=== PATIENT | female | born 1970 | race Caucasian/White ===

== ENCOUNTER 2016-12-06 09:52 | Emergency (ER) | payer BC ==
[2016-12-06] MEDS ORDERED: BUPIVACAINE (PF) 0.5% 30 ML VIAL SQ STA (10:37)
[2016-12-06] MEDS ORDERED: DIPH,PERTUS(ACELL)TETVAC-LF 0.5 ML VIAL IM ONE (10:47)
--- NOTE | 2016-12-06 11:31 | XR ---
EXAMINATION TYPE: XR hand complete LT DATE OF EXAM ORDERED: 12/06/2016 HISTORY: Pain. COMPARISON: None. FINDINGS: There is a moderately displaced, compound, comminuted tuft fracture of the distal phalanx of the left ring finger. No other fracture is seen. IMPRESSION: COMPOUND, COMMINUTED FRACTURE OF THE DISTAL PHALANX OF THE LEFT RING FINGER. CODE B: INITIAL ENCOUNTER FOR OPEN FRACTURE TYPE I OR II
[2016-12-06] MEDS ORDERED: ceFAZolin 1,000 MG VIAL IM STA (12:00)
[2016-12-06 12:27] VITALS: RESP 18
--- NOTE | 2016-12-06 13:53 | ED ---
Wound/Laceration HPI - General Chief Complaint: Wound/Laceration Stated Complaint: crushing injury wring finger left hand Time Seen by Provider: 12/06/16 10:28 Source: patient Mode of arrival: ambulatory Limitations: no limitations - History of Present Illness Initial Comments: This 46-year-old white female presents with a complaint of left ring finger crush injury. She apparently was splitting wood when her finger got caught between a piece of wood and the wood splitter. This occurred just prior to arrival. She is complaining of moderate to significant pain. She obtained a laceration to the distal aspect of the left ring finger. She denies any other injuries. Her tetanus tetanus was over 5 years ago. No other complaints or modifying factors. - Related Data Home Medications Medication Instructions Recorded Confirmed Ibuprofen [Ibuprofen] 800 mg PO Q8H PRN 12/06/16 12/06/16 Levothyroxine Sodium [Synthroid] 88 mcg PO DAILY 12/06/16 12/06/16 Sertraline [Zoloft] 100 mg PO DAILY 12/06/16 12/06/16 Previous Rx's Medication Instructions Recorded Cephalexin [Keflex] 500 mg PO Q6HR #28 cap 12/06/16 Hydrocodone/Acetaminophen [Roscoe 1 - 2 each PO Q4HR PRN #20 tab 12/06/16 5-325] Allergies Allergy/AdvReac Type Severity Reaction Status Date / Time No Known Allergies Allergy Verified 12/06/16 10:04 Review of Systems ROS Statement: Those systems with pertinent positive or pertinent negative responses have been documented in the HPI. ROS Other: All systems not noted in ROS Statement are negative. Past Medical History Past Medical History: No Reported History History of Any Multi-Drug Resistant Organisms: None Reported Additional Past Surgical History / Comment(s): neck Past Psychological History: No Psychological Hx Reported Smoking Status: Current every day smoker Past Alcohol Use History: None Reported Past Drug Use History: None Reported General Exam Limitations: no limitations Extremities exam: Present: tenderness (There is tenderness noted to the distal aspect of the left ring finger.), normal capillary refill (There is good capillary refill present to the distal segment of the left ring finger.) Neurological exam: Present: alert, oriented X3, other (Sensation is intact to the distal aspect of the left ring finger. Light touch and sharp.) Psychiatric exam: Present: normal affect, normal mood Skin exam: Present: other (There is a complex laceration noted to the distal aspect of the left ring finger. The laceration occurred just distal to the nail matrix and does involve the ulnar aspect of the left ring finger and slightly on the radial aspect. Total length of all lacerations is approximately 3 cm.) Course Vital Signs 12/06/16 12/06/16 10:00 12:26 Temperature 98.3 F Pulse Rate 80 77 Respiratory 17 18 Rate Blood Pressure 127/75 125/66 O2 Sat by Pulse 96 Oximetry Medical Decision Making - Medical Decision Making The patient was seen and examined. All diagnostics were reviewed. An x-ray was taken of the left hand and this does show comminuted fracture of the distal phalanx left ring finger. The patient receives a tetanus prophylaxis as well as Ancef 1 g IM. A digital block was completed by myself utilizing lidocaine with bupivacaine the usual standard fashion. Excellent anesthesia was obtained. The case was discussed with [place], the orthopedic physician bilingual sales assistant. He discusses the case with their orthopedic physician and he does call back and relates that he would like us to close the wound and have the patient follow up with Dr. Quinton Hoskins in 2 days. The wound was cleansed and thoroughly irrigated. It was explored and does appear to have some bony fragments but there is no foreign bodies or other deep structures involved. The nail was approximated back into the matrix. 2 sutures were placed deep that would essentially close the nailbed and hold the nail into place proximally. An additional 9 sutures were placed in and around the nail to further attach the skin. No deep sutures were placed. The patient tolerated the procedure well. Excellent results are noted. No complications were encountered. The wound was thoroughly dressed with antibiotics, and Adaptic, and a bulky dressing with a finger splint in place. The patient relates that she may not be able to follow-up with orthopedics due to financial concerns. Is strongly recommended that she still follow-up them for recheck. She understands and leaves in no distress. Return parameters are discussed. Disposition Clinical Impression: Finger laceration, Open finger fracture, Crush injury Disposition: HOME SELF-CARE Condition: Good Instructions: Finger Fracture (ED), Finger Laceration (ED), Diphtheria/ Pertussis/Tetanus Vaccine (By injection) Prescriptions: Cephalexin [Keflex] 500 mg PO Q6HR #28 cap Hydrocodone/Acetaminophen [Roscoe 5-325] 1 - 2 each PO Q4HR PRN #20 tab PRN Reason: Pain Referrals: Jimmy Thornton MD [Primary Care Provider] - 1-2 days Quinton Sandoval DO [Doctor of Osteopathic Medicine] - 12/08/16 Time of Disposition: 13:50
[2016-12-06 14:08] VITALS: BP 123/66; PULSE 68; TEMP 98.6
== END 2016-12-06 14:06 | disposition home or self-care (01) ==
LOC: EC 09:52
DX: S62.635B Displaced fracture of distal phalanx of left ring finger, initial encounter for open fracture (principal); F17.200 Nicotine dependence, unspecified, uncomplicated; Z23 Encounter for immunization; Z79.899 Other long term (current) drug therapy; W23.0XXA Caught, crushed, jammed, or pinched between moving objects, initial encounter
CPT/HCPCS: 99283; 11760; 96372; 90471; 73130; 90715; J0690

== ENCOUNTER → 2016-12-31 | Outpatient (CLI) | payer BC ==
--- NOTE | 2017-01-05 08:59 | MM ---
Reason for exam: screening (asymptomatic). Last mammogram was performed 2 years and 5 months ago. History: Benign right mammotome panel of the right breast, November 11, 2008. Physical Findings: A clinical breast exam by your physician is recommended on an annual basis and results should be correlated with mammographic findings. MG Screening Mammo w CAD Bilateral CC and MLO view(s) were taken. Prior study comparison: July 30, 2014, bilateral MG screening mammo w CAD. November 11, 2011, bilateral digital screening mammo w/CAD. There are scattered fibroglandular densities. Previous mammotome biopsy in the right breast. No significant changes when compared with prior studies. ASSESSMENT: Negative, BI-RAD 1 RECOMMENDATION: Routine screening mammogram of both breasts in 1 year.
== END | disposition home or self-care (01) ==
LOC: RADMAMWWP 07:26
PROVIDERS: ATTEND Obstetrics & Gynecology
DX: Z12.31 Encounter for screening mammogram for malignant neoplasm of breast (principal)

== ENCOUNTER → 2019-04-09 | Outpatient (CLI) | payer BC ==
--- NOTE | 2019-04-09 11:28 | BD ---
EXAMINATION TYPE: Axial Bone Density DATE OF EXAM: 04/09/2019 COMPARISON: NONE CLINICAL HISTORY: 49 YR OLD FEMALE....ICD-10 CODE: Z13.820 OSTEOPOROSIS SCREENING Height: 61.2 Weight: 165 FRAX RISK QUESTIONS: Current Tobacco Use: YES RISK FACTORS HISTORY OF: Active: YES Postmenopausal woman: HYST EARLY 30'S, SAHARA HORMONAL ?, NOW? Hyperparathyroidism: NO Adrenal Insufficiency: NO MEDICATIONS: Thyroid Medications: YES, GENERIC SYNTHROID, FOR ABOUT 6 YRS Additional Medications: ZOLOFT, REFLUX MEDS, RADIATION FOR THYROID CA Additional History: REFLUX, THYROID CA EXAM MEASUREMENTS: Bone mineral densitometry was performed using the [employer] System. Bone mineral density as measured about the Lumbar spine is: ----- L1-L4(G/cm2): 1.436 T Score Values are as follows: ----- L1: 2.0 ----- L2: 1.6 ----- L3: 2.2 ----- L4: 2.7 ----- L1-L4: 2.1 Bone mineral density IS A BASELINE STUDY, FIRST SCAN Bone mineral density about the R hip (g/cm2): 1.136 Bone mineral density about the L hip (g/cm2): 1.098 T Score values are as follows: -----R Neck: 0.6 -----L Neck: 0.5 -----R Total: 1.0 -----L Total: 0.7 Bone mineral density IS THE FIRST SCAN, BASELINE STUDY FRAX%s: THERE IS A 3.4% CHANCE FOR A MAJOR OSTEOPOROTIC FX AND A 0.1% FOR HIP.....PROBABILITY FOR F X IN 10 YRS TIME IMPRESSION: Normal (Values between +1 and -1 indicate normal bone mass). Consider repeating this study in 5 year s or sooner if there is some new clinical indication. NOTE: T-SCORE=SD OF THE YOUNG ADULT MEAN.
--- NOTE | 2019-04-12 12:20 | MM ---
Reason for exam: screening (asymptomatic). Last mammogram was performed 2 years and 3 months ago. History: Benign right mammotome panel of the right breast, November 11, 2008. Physical Findings: A clinical breast exam by your physician is recommended on an annual basis and results should be correlated with mammographic findings. MG Screening Mammo w CAD Bilateral CC and MLO view(s) were taken. Prior study comparison: December 31, 2016, bilateral MG screening mammo w CAD. July 30, 2014, bilateral MG screening mammo w CAD. The breast tissue is heterogeneously dense. This may lower the sensitivity of mammography. Benign appearing bilateral calcifications. No suspicious abnormality on the left breast. Right biopsy marker noted. Right upper outer quadrant architectural distortion 8.5cm from nipple middle depth. ASSESSMENT: Incomplete: need additional imaging evaluation, BI-RAD 0 RECOMMENDATION: Special view mammogram and ultrasound of the right breast. [facility] will attempt to contact patient to return for supplemental views and ultrasound.
== END | disposition home or self-care (01) ==
LOC: RADMAMWWP 09:46
PROVIDERS: ATTEND Obstetrics & Gynecology
DX: Z12.31 Encounter for screening mammogram for malignant neoplasm of breast (principal); Z13.820 Encounter for screening for osteoporosis
CPT/HCPCS: 77067; 77080

== ENCOUNTER → 2019-04-25 | Outpatient (CLI) | payer BC ==
--- NOTE | 2019-04-25 13:25 | MM ---
Reason for exam: additional evaluation requested from abnormal screening. Last mammogram was performed 1 month ago. History: Benign right mammotome panel of the right breast, November 11, 2008. Physical Findings: Nurse did not find any significant physical abnormalities on exam. MG Work Up Mamm w CAD RT Spot compression CC, spot compression MLO, and LM view(s) were taken of the right breast. Prior study comparison: April 09, 2019, bilateral MG screening mammo w CAD. December 31, 2016, bilateral MG screening mammo w CAD. The breast tissue is heterogeneously dense. This may lower the sensitivity of mammography. Previous mammotome biopsy in the right breast. There is no discrete abnormality right upper outer quadrant, appears to be summation on compression. These results were verbally communicated with the patient and result sheet given to the patient on 04/25/19. ASSESSMENT: Suspicious, BI-RAD 4 RECOMMENDATION: Ultrasound core biopsy of the right breast. Called Dr. Hussein's office with mammographic findings and has scheduled an appointment for the patient for 06/06/19 at 4:[address] Munguia. Biopsy scheduled for 05/23/19 at 12:20. PRELIMINARY REPORT CALLED AND FAXED TO DR. MUNGUIA ON 04/25/19.
--- NOTE | 2019-04-25 13:31 | USB ---
Reason for exam: additional evaluation requested from abnormal screening. History: Benign right mammotome panel of the right breast, November 11, 2008. US Breast Workup Limited RT Right limited breast ultrasound including focal area of concern, retroareolar and axilla demonstrates a 0.8 x 0.7 x 0.3cm oval, complex, cystic lesion at 12 o'clock, duct ectasia at 12 o'clock, a 0.6 x 0.7 x 0.3cm oval, cystic lesion at 10 o'clock, a 0.6 x 0.6 x 0.5cm oval, mixed lesion at 11 o'clock, suspicious and a 0.2 x 0.3 x 0.3cm ductal, mixed lesion at posterior nipple. These results were verbally communicated with the patient and result sheet given to the patient on 04/25/19. ASSESSMENT: Suspicious, BI-RAD 4 RECOMMENDATION: Ultrasound core biopsy of the right breast. Called Dr. Hussein's office with mammographic findings and has scheduled an appointment for the patient for 06/06/19 at 4:[address] Munguia. Biopsy scheduled for 05/23/19 at 12:20. PRELIMINARY REPORT CALLED AND FAXED TO DR. MUNGUIA ON 04/25/19.
== END | disposition home or self-care (01) ==
LOC: RADMAMWWP 10:06
PROVIDERS: ATTEND Obstetrics & Gynecology
DX: R92.8 Other abnormal and inconclusive findings on diagnostic imaging of breast (principal)
CPT/HCPCS: 77065

== ENCOUNTER → 2019-05-23 | Day surgery (SDC) | payer BC ==
[2019-05-23 11:47] VITALS: RESP 12; TEMP 98.6
[2019-05-23 12:51] VITALS: BP 116/70; PULSE 68
--- NOTE | 2019-05-23 13:03 | USB ---
EXAMINATION TYPE: US biopsy breast VAD RT, MG diagnostic mammo RT wo CAD DATE OF EXAM: 05/23/2019 CLINICAL HISTORY: R92.8 ABN MAMMO. TECHNIQUE: Ultrasound guided core biopsy of right breast. COMPARISON: 04/25/2019 FINDINGS: The procedure of ultrasound guided core biopsy was explained to the patient. Benefits, alternatives, and risks were discussed. An informed consent was then obtained. Preprocedural timeout was performed. The patient was placed in supine positioning for imaging and for the procedure. The overlying skin was prepped and draped in usual sterile fashion. 10 cc of 1% lidocaine was used as anesthetic into the skin and subcutaneous tissue up to the 0.7 cm mass at the 11:00 position in the right breast. Under ultrasound guidance, a 12-gauge vacuum assisted biopsy gun device was used to obtain 8 core samples. Following this, a wing shaped biopsy marker was left at the site of biopsy. Postprocedure mammogram demonstrates appropriate biopsy marker placement concordant with the mammographic finding. The patient tolerated the procedure well without any immediate complication. The patient was kept in the radiology department for short stay after the procedure and then discharged home in stable condition. IMPRESSION: Successful, uncomplicated ultrasound guided core biopsy of the 0.7 cm mass at the 11:00 position in the right, full pathology results to follow. Pathology Results: Malignant RIGHT BREAST, ULTRASOUND GUIDED CORE BIOPSY: Minute foci suspicious for invasive ductal carcinoma, severely limited for further definitive characterization. See note. Recommendation Surgical consult of the right breast. HANNAH
== END ==
LOC: RADUSWWP 11:19
PROVIDERS: ATTEND Surgery
DX: C50.911 Malignant neoplasm of unspecified site of right female breast (principal)
CPT/HCPCS: 88305; 88342; 88341; 77065; 19083; A4648; J2001

== ENCOUNTER 2019-07-02 09:50 | Day surgery (SDC) | payer BC ==
[2019-06-25 09:42] VITALS: BMI 29.2
[~2019-07-02 09:50] MED LIST: ALPRAZolam 0.5 MG TAB PO PRN; DEXAMETHASONE SOD PHOSPHATE 10 MG/ML 1 ML VIAL IV ONE; HEPARIN SODIUM,PORCINE 5,000 UNIT/ML 1 ML VIAL SQ ONE; HYDROmorphone 0.5 MG/0.5 ML SYRINGE IVP PRN; LACTATED RINGERS 1,000 ML IV SCH; ONDANSETRON 4 MG/2 ML VIAL IVP ONE; Pre Op ABX Message 1 EACH MISC MISCELLANE ONE
[2019-07-02 10:13] VITALS: RESP 16
[2019-07-02] MEDS ORDERED: LIDOCAINE 1% INJ 10MG/ML (20 ML MDV) SQ ONE (11:27)
[2019-07-02] MEDS ORDERED: BUPIVACAINE (PF) 0.25% 30 ML VIAL SQ ONE ×3 (11:44→12:44)
--- NOTE | 2019-07-02 12:00 | P.HPADDEND ---
H&P Addendum H&P Addendum Date: 07/02/19 As per previous H&P patient with recent biopsy showing small focus of invasive ductal cancer. Her case was discussed at our multidisciplinary tumor board recently. Recommendations to proceed with surgery made at that time. We'll proceed with right breast lumpectomy with wire localization, right sentinel lymph node biopsy and injection. Risks previously reviewed. No other changes to the history and physical.
--- NOTE | 2019-07-02 12:00 | P.NAPBC ---
[facility] Queries - [facility] Queries Was patient's case review presented at [facility] tumor board? If no, comment.: Yes Was patient's pathology reviewed at [facility]? If no, comment.: Yes Was breast conservation surgery offered? If no, comment.: Yes Was sentinel node biopsy offered? If no, comment.: Yes Was diagnosis confirmed by percutaneous core biopsy? If no, comment.: Yes Is patient mastectomy patient?: No Was a preop referral to reconstructive surgeon offered?: Yes [facility] Comments: 1a Clinical Stage: 1a
[2019-07-02] MEDS ORDERED: SUCCINYLCHOLINE CHLORIDE 100 MG/5 ML SYR IV ONE (12:09)
[2019-07-02] MEDS ORDERED: ePHEDrine SULFATE/0.9% NACL/PF 50 MG/5 ML SYRINGE IV ONE (12:09)
[2019-07-02] MEDS ORDERED: PROPOFOL 10 MG/ML 20 ML VIAL IV ONE (12:09)
[2019-07-02] MEDS ORDERED: MIDAZOLAM 2 MG/2 ML VIAL ONE (12:09)
[2019-07-02] MEDS ORDERED: LIDOCAINE 1% INJ 10MG/ML (20 ML MDV) ONE (12:09)
[2019-07-02] MEDS ORDERED: fentaNYL (PF) 50 MCG/ML 2 ML AMP ONE (12:09)
[2019-07-02] MEDS ORDERED: SODIUM CHLORIDE 0.9% 100 ML with ceFAZolin 2,000 MG IV ONE ×2 (12:31)
[2019-07-02] MEDS ORDERED: METHYLENE BLUE 50 MG/10 ML AMPUL INJ ONE (12:35)
--- NOTE | 2019-07-02 12:42 | NM ---
EXAMINATION TYPE: NM sentinel node injection DATE OF EXAM: 07/02/2019 COMPARISON: Right breast biopsy dated 05/23/2019 HISTORY: Right breast cancer with request for sentinel node injection. TECHNIQUE AND FINDINGS: The procedure of sentinel lymph node injection was explained to the patient. The benefits, alternatives, and risks were discussed. An informed consent was then obtained. Prepr ocedural timeout was performed. Overlying skin is cleaned with sterile alcohol. Following this, 504 uCi Tc99m Tilmanocept was inject ed in the upper outer aspect of the right nipple intradermally. The patient tolerated the procedure well without any immediate complication. The patient was kept in the radiology department for short stay after the procedure and then taken to surgery for surgical p rocedure what is presumed intraoperative gamma probe will be used for sentinel lymph node detection. IMPRESSION: Right breast radiotracer injection for sentinel node localization as above.
--- NOTE | 2019-07-02 13:55 | MM ---
EXAMINATION TYPE: MG pre op needle loc RT, MG surgical specimen RT DATE OF EXAM: 07/02/2019 COMPARISON: Right breast biopsy dated 05/23/2019 CLINICAL HISTORY: Right breast cancer. Request from needle localization. TECHNIQUE: Needle localization with wire placement and surgical excision of area of concern in the right breast. FINDINGS: The procedure of needle localization with wire placement and than surgical excision was explained to the patient. Benefits, alternatives, and risks were discussed. An informed consent was then obtained. Preprocedural timeout was performed. The shortest pathway for procedure was chosen. Shortest pathway was CC from above approach. The overlying skin was prepped and draped in usual sterile fashion. Lidocaine buffered with bicarbonate was used as anesthetic into the skin and subcutaneous tissue up to the level of area of concern. A 5 cm needle was used. It was placed via a CC from above approach under mammographic guidance. Subsequent 90 degrees mammogram show the needle to be in satisfactory position relative to the targeted area. At this point, wire was placed and the needle was withdrawn. The wire was fixed to patient's skin. Images were marked for surgeon. The patient tolerated the procedure well without any immediate complication. The patient was kept in the radiology department for short stay after the procedure and then taken to surgery for surgical excision. Targeted biopsy marker and mammographic density and wire are identified in specimen mammogram. The patient was kept in hospital for short stay after the procedure and then discharged home in stable condition. IMPRESSION: Successful, uncomplicated needle localization with wire placement and surgical excision of a biopsy marker denoting the biopsy-proven right breast invasive ductal carcinoma, full pathology results to follow. Pathology Results: Malignant A. RIGHT BREAST, LUMPECTOMY: 11 x 5 x 4 mm well differentiated (Rosita Grade 1) infiltrating ductal adenocarcinoma in a background of fibrocystic disease with intraductal mineralizations. Tumor is greater than 3 mm away from the superior anterior, black/blue inked margin and 6 mm from the green/yellow margin of excision. See note. B. SENTINEL LYMPH NODE #1, BIOPSY: Negative for adenocarcinoma as seen on H+E as well as appropriately controlled immunohistochemical studies for QIAN and cytokeratin 7. Recommendation Surgical consult of the right breast. Continued surgical medical management. MTDD
[2019-07-02 13:59] VITALS: TEMP 97.3
[2019-07-02] MEDS ORDERED: traMADol 50 MG TAB PO PRN (14:28)
[2019-07-02] MEDS ORDERED: NALOXONE 0.4 MG/ML 1 ML VIAL IV PRN (14:28)
[2019-07-02 15:16] VITALS: PULSE 72
[2019-07-02 15:25] VITALS: BP 115/67
--- NOTE | 2019-07-02 15:50 | P.OP ---
Date of Procedure: 07/02/19 Procedure(s) Performed: REOPERATIVE DIAGNOSIS: Right breast cancer POSTOPERATIVE DIAGNOSIS: Same PROCEDURE: Right Breast wire localization lumpectomy with sentinel lymph node biopsy SURGEON: Nilda EBL: Minimal ANESTHESIA: General COMPLICATIONS: None OPERATIVE PROCEDURE: Patient was placed on the operating room table in the supine position. 2 mL of methylene blue was injected into the subareolar space. The breast was then massaged for 5 minutes. The breast was prepped and draped in usual sterile fashion. The right axilla was addressed at that time. The hot spot in the right axilla was identified. A small curvilinear incision was made using the scalpel. Dissection down through the subcutaneous tissues took place using electrocautery. Using the neoprobe I identified a total of 1 sentinel lymph node that was blue in color and radioactive. No additional blue lymphatics or radioactivity was identified in the axilla at that time. The lymph node itself appeared clinically benign. This was sent for permanent sectioning. No bleeding was seen. The subcutaneous tissues were closed using 3-0 Vicryl sutures. The skin was closed using 4-0 Monocryl sutures. The wire entrance site was then addressed. This was present at the 10:00 location. A curvilinear incision was made adjacent to the wire entrance site. I followed the wire down into the breast tissue. An adequate lumpectomy specimen then took place around the wire. Margins of 1.5-2 cm worth attempted to be achieved. The specimen was then painted the appropriate 6 colors. Clips were used to identify the lumpectomy cavity. The clip was confirmed to be within the lumpectomy specimen by radiology. The subcutaneous tissues were closed using 3-0 Vicryl sutures. The skin was closed using a running 4-0 Monocryl stitch. Skin glue and sterile dressings were then applied. DISPOSITION: Stable to recovery room
== END 2019-07-02 15:30 | disposition home or self-care (01) ==
LOC: OR 09:50
PROVIDERS: ATTEND Surgery
DX: C50.911 Malignant neoplasm of unspecified site of right female breast (principal); Z17.0 Estrogen receptor positive status [ER+]; F39 Unspecified mood [affective] disorder; E07.9 Disorder of thyroid, unspecified; K21.9 Gastro-esophageal reflux disease without esophagitis; F17.200 Nicotine dependence, unspecified, uncomplicated; Z79.890 Hormone replacement therapy; Z79.899 Other long term (current) drug therapy; Z79.1 Long term (current) use of non-steroidal anti-inflammatories (NSAID); Z90.710 Acquired absence of both cervix and uterus; Z98.890 Other specified postprocedural states
CPT/HCPCS: 19301; 38500; 88342; 88307; 88341; 76098; 38792; A9520; J2250; J1644; J1100; J2405; J0690; J2001; J3010; J0330; J2704; Q9968

== ENCOUNTER → 2020-06-10 | Outpatient (CLI) | payer BC ==
--- NOTE | 2020-06-10 10:12 | MM ---
Reason for exam: additional evaluation requested from prior study. Last mammogram was performed 1 year and 1 month ago. History: Patient has history of breast cancer at age 49. Radiation therapy, August 2019. Malignant MG pre op needle loc RT of the right breast, July 02, 2019. Lumpectomy of the right breast, July 02, 2019. Malignant US biopsy breast VAD RT of the right breast, May 23, 2019. Benign right mammotome panel of the right breast, November 11, 2008. Taking antineoplastic for 10 months. Physical Findings: Nurse did not find any significant physical abnormalities on exam. MG Diagnostic Mammo w CAD SHANKAR Bilateral CC and MLO view(s) were taken. Prior study comparison: May 23, 2019, right breast MG diagnostic mammo RT wo CAD. April 25, 2019, right breast MG work up mamm w CAD RT. The breast tissue is heterogeneously dense. This may lower the sensitivity of mammography. Finding: There are stable grouped/clustered calcifications in the outer quadrant, middle position 6cm from the nipple. Post surgical changes right upper outer quadrant. No significant changes in finding since May 23, 2019 and April 25, 2019. These results were verbally communicated with the patient and result sheet given to the patient on 06/10/20. ASSESSMENT: Benign, BI-RAD 2 RECOMMENDATION: Follow-up diagnostic mammogram of both breasts in 1 year.
== END | disposition home or self-care (01) ==
LOC: RADMAMWWP 08:54
PROVIDERS: ATTEND Internal Medicine Hematology & Oncology
DX: Z08 Encounter for follow-up examination after completed treatment for malignant neoplasm (principal); Z85.3 Personal history of malignant neoplasm of breast
CPT/HCPCS: 77066

== ENCOUNTER → 2021-12-25 | Outpatient (CLI) | payer OTHER ==
--- NOTE | 2021-12-25 11:29 | MM ---
Reason for Exam: Clinical finding. Last mammogram was performed 1 year(s) and 6 month(s) ago. Patient History: Menarche at age 9. First Full-Term at age 28. Late child-bearing (after 28). Hysterectomy at age 33. Breast cancer, right, age 49. 07/02/2019, Lumpectomy on the Right side. 07/02/2019, Malignant Core Biopsy on the right side. 05/23/2019, Malignant Core Biopsy on the right side. 11/11/2008, Benign Core Biopsy on the right side. 08/2019, Radiation Therapy. Prior Study Comparison: 04/25/2019 Right Diagnostic Mammogram, [facility]. 05/23/2019 Right Diagnostic Mammogram, [facility]. 06/10/2020 Bilateral Diagnostic Mammogram, [facility]. Tissue Density: The breast tissue is heterogeneously dense. This may lower the sensitivity of mammography. Findings: Analyzed By CAD. Stable lumpectomy changes right breast. Postoperative distortion. Scattered stable benign-appearing calcifications. Overall Assessment: Benign, BI-RAD 2 Management: Diagnostic Mammogram of both breasts in 1 year. A clinical breast exam by your physician is recommended on an annual basis and results should be correlated with mammographic findings. This exam should not preclude additional follow-up of suspicious palpable abnormalities. Results were given to the patient verbally at the time of exam. Electronically signed and approved by: Trino Lara M.D. Radiologis
== END | disposition home or self-care (01) ==
LOC: RADMAMWWP 10:53
PROVIDERS: ATTEND Internal Medicine Hematology & Oncology
DX: C50.411 Malignant neoplasm of upper-outer quadrant of right female breast (principal)
CPT/HCPCS: 77066

== ENCOUNTER → 2023-01-26 | Outpatient (CLI) | payer OTHER ==
--- NOTE | 2023-01-27 09:06 | CTL ---
EXAMINATION TYPE: CT Low Dose Lung DATE OF EXAM: 01/26/2023 5:00 PM CLINICAL INDICATION:Female, 52 years old with history of Z12.31; Personal hx of tobacco use. 1 pack/ day x 30 years. Current smoker. , history of tobacco use. COMPARISON: None. TECHNIQUE: Multiple axial non-contrast scans were obtained from approximately the lung apices through the upper abdomen. Coronal and sagittal reformatted images were obtained. Low dose technique was uti lized. CT DLP: 81.2 mGycm, Automated exposure control for dose reduction was used. CT Contrast: Contrast used: None Oral contrast used: None FINDINGS: ======== Lack of intravenous contrast and low dose technique limits the evaluation of the vascular and soft ti ssue structures. LUNGS: No evidence of pulmonary fibrosis. No evidence of focal consolidation, pneumothorax or pleural effusion. Nodules: RUL: None. RML: None. RLL: None. COSTA: None. LLL: * Calcified granuloma series 4 image 201, * 3 mm image 201 * opacity felt to represent atelectasis and/or scarring series 4 image 197. * 5 mm image 158 * Minor fissure intrafissural lymph node image 138 and 149. AIRWAY: Patent and unremarkable. HEART: Size within normal limits. MEDIASTINUM: No gross evidence of adenopathy. VASCULATURE: No aortic aneurysm. MUSCULOSKELETAL: Mild disc degeneration changes are present throughout the thoracolumbar spine. SOFT TISSUES/LYMPH NODES: Unremarkable. LOWER NECK: No significant findings. UPPER ABDOMEN: No significant findings. IMPRESSION: Left lower lobe pulmonary nodules which meet criteria for follow-up in one year. CT LUNG RAD AND CT CHEST RECOMMENDATION: Lung-Rad 2 Benign Appearance or Behavior: Continue annual sc reening with LDCT in 12 months. S Modifier (other clinically significant findings): None Recommend smoking cessation (if current smoker), or continuation of smoking cessation (if prior smoke r). Annual screening for lung cancer with low-dose computed tomography is recommended in adults ages 55 to 77 years who have a 30 pack-year smoking history and currently smoke or have quit within the pa st 15 years. Screening should be discontinued once a person has not smoked for 15 years or develops a health problem that substantially limits life expectancy or the ability or willingness to have curat atul lung surgery. Lung rads 2021 [email or web address]
--- NOTE | 2023-01-27 20:52 | MM ---
Reason for Exam: Screening (asymptomatic). Last mammogram was performed 1 year(s) and 1 month(s) ago. Patient History: Menarche at age 9. First Full-Term at age 28. Late child-bearing (after 28). Hysterectomy at age 33. Breast cancer, right, age 49. Previous chest radiation therapy at age 49. 07/02/2019, Lumpectomy on the Right side. 07/02/2019, Malignant Core Biopsy on the right side. 05/23/2019, Malignant Core Biopsy on the right side. 11/11/2008, Benign Core Biopsy on the right side. 08/2019, Radiation Therapy. Prior Study Comparison: 05/23/2019 Right Diagnostic Mammogram, [facility]. 06/10/2020 Bilateral Diagnostic Mammogram, [facility]. 12/25/2021 Bilateral MG diagnostic mammo w CAD [facility], [facility]. Tissue Density: There are scattered fibroglandular densities. Findings: Analyzed By CAD. Postsurgical and posttreatment changes right breast. Asymmetric density medial left breast remains unchanged. Asymmetric density lateral left breast at a middle depth is more defined but appears to disperse on the XCCL view. Superimposition shadow is suggested. Precautionary 6 month follow-up recommended. Otherwise, there is no suspicious group of microcalcifications or new suspicious mass in either breast. Overall Assessment: Probably benign, BI-RAD 3 Management: Diagnostic Mammogram of the left breast in 6 months. . Patient should continue monthly self-breast exams. A clinical breast exam by your physician is recommended on an annual basis. This exam should not preclude additional follow-up of suspicious palpable abnormalities. Note on Cathy scores and lifetime risk: 1. A Cathy score greater than 3% is considered moderate risk. If this is the case, consider specialist referral to assess eligibility for a risk reducing agent. 2. If overall lifetime risk for the development of breast cancer is 20% or higher, the patient may qualify for future screening with alternating mammogram and breast MRI. Electronically signed and approved by: Brett Hope M.D. Radiologist
== END | disposition home or self-care (01) ==
LOC: RADMAMWWP 16:14
PROVIDERS: ATTEND Internal Medicine Hematology & Oncology
DX: Z12.31 Encounter for screening mammogram for malignant neoplasm of breast (principal); Z12.2 Encounter for screening for malignant neoplasm of respiratory organs; F17.210 Nicotine dependence, cigarettes, uncomplicated
CPT/HCPCS: 71271; 77067

== ENCOUNTER → 2024-01-30 | Outpatient (CLI) | payer OTHER ==
--- NOTE | 2024-02-03 12:59 | CTL ---
EXAMINATION TYPE: CT Low Dose Lung DATE OF EXAM ORDERED: 01/30/2024 HISTORY: 53-year-old female Z12.2,F17.210 NICOTINE DEPENDENCE, CIGARETTES, [facility]. Lung cancer screening CT DLP: 87.[address] CTDI: 2.4 mGy Automated exposure control for dose reduction was used. SCREENING VISIT: Annual follow-up COMPARISON: 01/26/2023 TECHNIQUE: Low dose computed tomography scan was performed through the chest at 1 mm thick sections a nd reconstructed images in multiple planes at 1 mm and [address] DIAGNOSTIC QUALITY: Satisfactory FINDINGS: Heart normal size with trace pericardial fluid. Aorta normal caliber with conventional branching anatomy. No thoracic lymphadenopathy by CT size criteria. Surgical clips right axilla. Mild emphysematous change. Mild diffuse bronchial wall thickening. Subpleural reticulations anterior right mid to lower lung may reflect post radiation therapy change given the surgical clips in the rig ht axilla. Some patchy opacity at inferior lingula favored to represent atelectasis. 3 mm right middle lobe pulmonary nodule, axial image 153 appears new. 7 mm subpleural pulmonary nodule or lobe remains unchanged., Axial image 178. 6 mm lateral left lower lobe pulmonary nodule, axial image 225 and adjacent 5 mm pulmonary nodule axi al image 231 both remain unchanged. 5 mm fissural pulmonary nodule left lower lung, axial image 157 is unchanged. 4 mm fissural pulmonary nodule left mid lung, axial image 130 is unchanged. 4 mm anterior right upper lobe pulmonary nodule, axial image 108 is unchanged. Clustered 4 mm and smaller right mid lung fissural nodules, for example, axial image 139 are unchange d. Low-density nodularity left adrenal gland measuring 1.1 cm is unchanged, suspected underlying adrenal adenoma. Bones: No osseous destructive process. Partially visualized ACDF. IMPRESSION: 1. LungRADS Category 2 (benign appearance or behavior, <1% chance of malignancy); scattered 7 mm and smaller pulmonary nodules are unchanged. A single 3 mm nodule right middle lobe is new but qualifies as benign on screening. 2. COPD with mild emphysema. Some patchy and groundglass density at the inferior lingula probably rel ates to atelectasis or some air trapping from small airways disease. Correlate with symptoms to exclu de an early pneumonitis. 3. Suspect a 1.1 cm left adrenal adenoma, unchanged. CT LUNG RAD AND CT CHEST RECOMMENDATION: Lung-Rad 2 Benign Appearance or Behavior: Continue annual sc reening with LDCT in 12 months. S Modifier (other clinically significant findings): None
== END | disposition home or self-care (01) ==
LOC: RADCTMAIN 10:57
PROVIDERS: ATTEND Internal Medicine Hematology & Oncology
DX: Z12.2 Encounter for screening for malignant neoplasm of respiratory organs (principal); J43.9 Emphysema, unspecified; J44.9 Chronic obstructive pulmonary disease, unspecified; R91.8 Other nonspecific abnormal finding of lung field; F17.210 Nicotine dependence, cigarettes, uncomplicated
CPT/HCPCS: 71271

== ENCOUNTER → 2025-01-15 | Outpatient (CLI) | payer OTHER ==
[2025-01-15 15:25] LABS: Cholesterol 247.00 mg/dL (0.00-200.00); HDL Cholesterol 48.70 mg/dL (40.00-60.00); LDL Cholesterol,Calculated 153.9 mg/dL (0.0-131.0); T4, Free (Free Thyroxine) 1.06 ng/dL (0.80-1.80); Triglycerides 222.00 mg/dL (0.00-149.00); VLDL Calculation 44.40 mg/dL (5.00-40.00)
== END | disposition home or self-care (01) ==
LOC: LABWHC1 09:23
PROVIDERS: ATTEND Physician Assistant
DX: E03.9 Hypothyroidism, unspecified (principal); E78.5 Hyperlipidemia, unspecified; R73.03 Prediabetes
CPT/HCPCS: 36415; 80061; 83036; 84439; 84443